=== PATIENT | female | born 1960 | race Two or more races ===

== ENCOUNTER 2017-10-14 08:25 | Outpatient (CLI) | payer OTHER ==
[~2017-10-14 08:25] MED LIST: AVALIDE 150-12.1 TA1; JANUMET 50-1,1 UDTAB; NEURONTIN300 MG; NORVASC2.5 M1; VYTORIN 10-20 M1 TAB
== END 2017-10-14 10:08 | disposition home or self-care (01) ==
LOC: NUCLEAR 08:25
DX: C50.912 Malignant neoplasm of unspecified site of left female breast (principal)

== ENCOUNTER 2017-10-14 10:49 | Outpatient (CLI) | payer OTHER | END 2017-10-14 10:58 | disposition home or self-care (01) | LOC: SONOGRAMA 10:49 | DX: C50.912 Malignant neoplasm of unspecified site of left female breast (principal) ==

== ENCOUNTER 2020-10-02 09:15 | Outpatient (CLI) | payer OTHER ==
[~2020-10-02 09:15] MED LIST changes: +NABUMETONE750 MG PO
== END 2020-10-02 09:26 | disposition home or self-care (01) ==
LOC: TOM 09:15
PROVIDERS: ATTEND Specialist
DX: Q61.02 Congenital multiple renal cysts (principal); K44.9 Diaphragmatic hernia without obstruction or gangrene

== ENCOUNTER → 2020-12-19 | Emergency (ER) | payer OTHER ==
[~2020-12-19] VITALS: Ht 162.6 cm; Wt 65.8 kg
== END | disposition home or self-care (01) ==
LOC: ER 10:36
DX: R53.81 Other malaise (principal); I10 Essential (primary) hypertension

== ENCOUNTER 2020-12-23 07:54 | Outpatient (CLI) | payer OTHER | END 2020-12-23 08:12 | disposition home or self-care (01) | LOC: TOM 07:54 | PROVIDERS: ATTEND Internal Medicine Gastroenterology | DX: K57.90 Diverticulosis of intestine, part unspecified, without perforation or abscess without bleeding (principal); K63.89 Other specified diseases of intestine ==

== ENCOUNTER 2024-03-20 08:41 | Outpatient (CLI) | payer OTHER | END 2024-03-20 08:56 | disposition home or self-care (01) | LOC: MRI 08:41 | PROVIDERS: ATTEND Specialist | DX: M46.46 Discitis, unspecified, lumbar region (principal); Z79.2 Long term (current) use of antibiotics | CPT/HCPCS: 72158 ==